=== PATIENT | female | born 1990 | race Caucasian/White ===

== ENCOUNTER 2018-11-19 00:21 | Emergency (ER) | payer MEDICAID, OTHER ==
[~2018-11-19] VITALS: Ht 157.5 cm; Wt 100.0 kg
[2018-11-19 00:22] VITALS: Ht 157.5 cm; Wt 100.0 kg
[2018-11-19] MEDS ORDERED: KETOROLAC 60 MG INJ IM STA (02:43)
[2018-11-19] MEDS ORDERED: traMADol 50 MG TAB PO ONE (03:00)
[2018-11-19] MEDS ORDERED: ACET500C5 PO (05:24)
[2018-11-19] MEDS ORDERED: NAPR-985 PO (05:24)
--- NOTE | 2018-11-19 05:37 | ERD ---
ER Documentation Chief Complaint Chief Complaint LEFT KNEE PAIN X 11:30PM YESTERDAY. "FELL ON IT WRONG". HPI History of Present Illness: 28-year-old female who denies a past medical history coming in today with complaint of left knee pain that started approximately 2330. Patient reports that she was at some museum in [place] and she jumped and fell. Patient reports mild pain with ambulation. Denies any other associated symptoms. At home pharmacological/nonpharmacological treatment for symptoms: Denies Denies social concerns; Denies recent foreign travel ROS All systems reviewed and are negative except as per history of present illness. Medications Home Meds Active Scripts Acetaminophen* (Tylophen*) 500 Mg Capsule, 2 CAP PO Q6 PRN for PAIN AND OR ELEVATED TEMP, #20 CAP Prov:KYAW MUNGUIA NP 11/19/18 Naproxen* (Naprosyn*) 500 Mg Tablet, 500 MG PO BID PRN for PAIN AND/OR INFLAMMATION, #30 TAB Prov:KYAW MUNGUIA NP 11/19/18 Allergies Allergies: Coded Allergies: No Known Allergy (Unverified , 11/19/18) PMhx/Soc Medical and Surgical Hx: pt denies Medical Hx, pt denies Surgical Hx Hx Alcohol Use: No Hx Substance Use: No Hx Tobacco Use: No Smoking Status: Never smoker FmHx Family History: diabetes; No coronary disease Physical Exam Vitals Vital Signs Date Temp Pulse Resp B/P (MAP) Pulse Ox O2 O2 Flow FiO2 Time Delivery Rate 11/19/18 97.7 91 16 152/75 99 00:22 (100) Physical Exam Const: No acute distress Head: Atraumatic Eyes: Normal Conjunctiva ENT: Normal External Ears, Nose and Mouth. Neck: Full range of motion. No meningismus. Resp: Clear to auscultation bilaterally Cardio: Regular rate and rhythm, no murmurs Abd: Soft, non tender, non distended. Normal bowel sounds Skin: No petechiae or rashes Back: No midline or flank tenderness Ext: No cyanosis; tenderness to palpation over left knee, mild swelling. Tenderness to palpation over lateral aspect of left calf, no ecchymosis, no warmth, no erythema. Neur: Awake and alert Psych: Normal Mood and Affect Results 24 hrs Laboratory Tests Test 11/19/18 03:02 POC Beta HCG, Qualitative NEGATIVE Current Medications Medications Dose Sig/Christine Start Time Status Last (Trade) Ordered Route PRN Stop Time Admin Dose Reason Admin Ketorolac 60 mg ONCE STAT 11/19/18 DC 11/19/18 Tromethamine IM 02:43 03:06 (Toradol) 11/19/18 02:46 Tramadol 50 mg ONCE ONCE 11/19/18 DC 11/19/18 HCl PO 03:00 03:05 (Ultram) 11/19/18 03:01 Procedures/MDM ED course includes a thorough examination and history. Medications: Ketorolac, tramadol Imaging: Tib-fib x-ray, knee x-ray Labs: Regnan Low suspicion for life-threatening medical emergency. Otherwise healthy patient presenting with constellation of symptoms likely representing effusion of the joint secondary to knee injury as characterized by history, physical exam findings, radiology findings, lab findings. Urine negative. X-ray report showing no acute fracture to tib-fib. X-ray report of knee showing: IMPRESSION: No acute osseous abnormality is seen. Suprapatellar fullness suggesting joint effusion, nonspecific. MRI could be considered on a follow-up basis to evaluate for internal derangement, if concern or symptoms persist. RPTAT: [facility] Physician Gary Date Time Electronically viewed and signed by Physician Gary on 11/19/2018 05:19 Patient reassessment @0525: Patient hemodynamically stable. NO Physical signs of pain. No respiratory distress, otherwise relatively well appearing and nontoxic. Disposition given. Patient educated on diagnoses, prescriptions, follow-up care, return precautions. Strict return precautions given for worsening condition; questions answered discharge. Disposition for discharge with followup in 2 days with PCP/clinic. Departure Diagnosis: Primary Impression: Knee injury Encounter type: initial encounter Laterality: left Qualified Codes: S89.92XA - Unspecified injury of left lower leg, initial encounter Additional Impression: Effusion of knee joint, left Condition: Stable Patient Instructions: Knee Effusion Referrals: [facility] YOU HAVE RECEIVED A MEDICAL SCREENING EXAM AND THE RESULTS INDICATE THAT YOU DO NOT HAVE A CONDITION THAT REQUIRES URGENT TREATMENT IN THE EMERGENCY DEPARTMENT. FURTHER EVALUATION AND TREATMENT OF YOUR CONDITION CAN WAIT UNTIL YOU ARE SEEN IN YOUR DOCTORS OFFICE WITHIN THE NEXT 1-2 DAYS. IT IS YOUR RESPONSIBILITY TO MAKE AN APPOINTMENT FOR FOLOW-UP CARE. IF YOU HAVE A PRIMARY DOCTOR --you should call your primary doctor and schedule an appointment IF YOU DO NOT HAVE A PRIMARY DOCTOR YOU CAN CALL OUR PHYSICIAN REFERRAL HOTLINE AT IF YOU CAN NOT AFFORD TO SEE A PHYSICIAN YOU CAN CHOSE FROM THE FOLLOWING [facility] [id number] [facility] [address] [facility] [address] [facility] [address] [facility] [address] [facility]. [facility] [address] [facility]. [facility] YOU HAVE RECEIVED A MEDICAL SCREENING EXAM AND THE RESULTS INDICATE THAT YOU DO NOT HAVE A CONDITION THAT REQUIRES URGENT TREATMENT IN THE EMERGENCY DEPARTMENT. FURTHER EVALUATION AND TREATMENT OF YOUR CONDITION CAN WAIT UNTIL YOU ARE SEEN IN YOUR DOCTORS OFFICE WITHIN THE NEXT 1-2 DAYS. IT IS YOUR RESPONSIBILITY TO MAKE AN APPOINTMENT FOR FOLOW-UP CARE. IF YOU HAVE A PRIMARY DOCTOR --you should call your primary doctor and schedule and appointment IF YOU DO NOT HAVE A PRIMARY DOCTOR YOU CAN CALL OUR PHYSICIAN REFERRAL HOTLINE AT . IF YOU CAN NOT AFFORD TO SEE A PHYSICIAN YOU CAN CHOSE FROM THE FOLLOWING [facility] INSTIT[facility]IONS: [facility] [address] [place] [address] [facility] [address] [place] [address] [facility] [address] [place] [address] Additional Instructions: Thank you very much for allowing us to participate in your care. Your health and safety is our top priority at [facility]. It is important to read all discharge instructions and education provided in your discharge packet. *Rest. Ice. Compression. Elevation. It is very important for this process of healing. This will help decrease the joint effusion.* Call your primary care doctor TOMORROW for an appointment during the next 2-4 days and bring all the information and medications prescribed. Have prescriptions filled and follow precisely the directions on the label. . -Naproxen is a anti-inflammatory/pain medication; take this medication daily as prescribed for the next week to help with swelling/inflammation/pain. -Acetaminophen as a medication for pain and/or fever. Take this medication as needed for mild to moderate pain. This medication will not cause drowsiness. If the symptoms get worse and your provider is unavailable, return to the Emergency Department immediately. KYAW MUNGUIA NP November 19, 2018 05:37
[2018-11-19 05:58] VITALS: BP 109/52; PULSE 56; RESP 16
== END 2018-11-19 05:58 | disposition home or self-care (01) ==
LOC: FTE 00:21
DX: S89.92XA Unspecified injury of left lower leg, initial encounter (principal); M25.462 Effusion, left knee; W18.39XA Other fall on same level, initial encounter; Y92.251 Museum as the place of occurrence of the external cause
CPT/HCPCS: 73562; 73590; 81025; 96372; J1885; Z7502; Z7610